=== PATIENT | female | born 1995 | race Caucasian/White ===

== ENCOUNTER 2017-07-24 12:25 | Emergency (ER) | payer BC, SELFPAY ==
[2017-07-24 12:27] VITALS: BP 113/63; PULSE 88; RESP 18; TEMP 37; O2SAT 99; BMI 22.2
--- NOTE | 2017-07-24 12:32 | EKG12_ITS ---
Test Reason : NUMB/TINGLING Blood Pressure : / mmHG Vent. Rate : 080 BPM Atrial Rate : 080 BPM P-R Int : 140 ms QRS Dur : 070 ms QT Int : 350 ms P-R-T Axes : 057 037 047 degrees QTc Int : 403 ms Normal sinus rhythm Normal ECG Confirmed by MOHINDER BENITEZ, YUNIEL ([id number]), senior editor NATHAN FULLER ([id number]) on 07/26/2017 12:52:09 PM Referred By: BUNNY Confirmed By:YUNIEL VINES MD
--- NOTE | 2017-07-24 12:34 | ED.DCSUM_ITS ---
- ER Visit Summary Date of Service: 07/24/17 Chief Complaint: Tingling, almost passed out History of Present Illness: The patient is a 21 F who is at approximately 22 weeks gestation presents after near syncopal event. The patient has been in her normal state of health. She has had no problems with . She states that she was at work today. She states that she just was not feeling herself. She was at a table taking in order. She became very lightheaded and had some tunnel vision. She sat down but never lost consciousness. She had no chest pain. She states she began to panic and felt like she was short of breath but that has since resolved. She has had no vaginal bleeding or discharge. She has passed out before, but it has been a few years. There is no family history of sudden cardiac . She denies any leg swelling. She denies any other systemic symptoms. Physical Examination: Vital signs reviewed General: Well-nourished, well-developed Head: Normocephalic, atraumatic Eyes: Pupils equal and reactive, extraocular muscles intact Neck, supple, no lymphadenopathy Heart: Regular rate and rhythm Respiratory: No distress, clear bilaterally Abdomen: Soft, nontender, nondistended, no peritoneal signs Back: Nontender Extremities: Nontender, no edema, no cords Skin: Normal color no rash Neuro: Alert and oriented, no focal or lateralizing deficits Test Results: [] Emergency Department Course and Treatment: I did do a bedside ultrasound on patient arrival. She has normal activity, normal fluid, and heart rates in the 140s and reactive. EKG was obtained given her near syncopal episode. Sinus rhythm without acute ischemic change. There is normal intervals. The patient was given IV fluids. Her screening labs were obtained and unremarkable. She has had no further symptoms while here. In review with the patient, she has had some constipation during this . I do feel that this is likely contributing to her symptoms. She has a repeat normal examination. She is not hypertensive. She has no peripheral edema. At this time, I do for the patient can safely be discharged. She is comfortable this plan of care. Treatment Plan: [] Disposition: Discharge Impression: 1. Vasovagal near syncope This note was generated with The [employer] software. It may contain incorrect words, spelling, and punctuation that were not noted in review of the chart prior to signing ED Disposition - Plan for ED Patient: Chief Complaint: Numb/Ting Instructions: ED Near Syncope Vasovagal Referrals: Camelia Garcia [Primary Care Provider] -
[2017-07-24] MEDS: 0.9% Normal Saline 1,000 ML 1000 ML IV (12:46)
[2017-07-24 13:02] LABS: Absolute Lymphocyte Count 1.21 X10^3/ul (0.83-4.51); Absolute Neutrophil Count 7.6 X10^3/uL (2.0-7.7); Basophil# 0.06 X10^3/uL; Basophil% 0.6 % (0-1); Eosinophil# 0.12 X10^3/uL; Eosinophils% 1.2 % (0-5); Hematocrit 29.8 % (37-47); Hemoglobin 10.8 g/dl (12.0-15.0); Lymphocyte # 1.21 X10^3/ul (4.0); Lymphocyte % 12.4 % (19-41); Mean Corp Hgb Conc 36.2 g/gl (32-36); Mean Corpuscular Hgb 34.8 pg (27.0-32.0); Mean Corpuscular Volume 96.1 fL (81-99); Mean Platelet Vol. 8.4 fl (6.2-12.0); Monocyte# 0.64 X10^3/uL; Monocyte% 6.6 % (0-10); Neutrophil # 7.62 X10^3/uL (2.7-7.7); Neutrophil % 78.5 % (47-70); Platelet Count 294 K/mm3 (150-450); RBC Distribution Width CV 12.3 % (11.6-14.6); RBC Distribution Width SD 41.4 fl (35.1-43.9); White Blood Count 9.7 K/mm3 (4.4-11.0)
[2017-07-24 13:07] LABS: BUN 10 mg/dL (7-18); BUN/Creat Ratio 18.8 RATIO (10-20); Calcium,Total 8.6 mg/dL (8.5-10.1); Creatinine, Serum 0.53 mg/dL (0.55-1.02); EST Glomerular Filtration Rate 153 mL/min (>60); Est Glom Filt Rate - Afr Amer 186 mL/min (>60); Glucose 78 mg/dL (74-106)
[2017-07-24 13:08] LABS: Anion Gap 10 (5-15); Chloride 106 mmol/L (98-107); Potassium 3.4 mmol/L (3.5-5.1); Sodium Level 139 mmol/L (136-145)
[2017-07-24 13:34] LABS: POSITIVE COUNT NO; POSITIVE DIFFERENTIAL NO; POSITIVE MORPHOLOGY NO
[2017-07-24 13:45] VITALS: BP 115/62; PULSE 70; RESP 18
== END 2017-07-24 13:45 | disposition home or self-care (01) ==
LOC: ED 13:06
PROVIDERS: Emergency Provider Emergency Medicine; Family Provider Obstetrics & Gynecology; PCP Obstetrics & Gynecology
DX: O26.892 Other specified pregnancy related conditions, second trimester (principal); R55 Syncope and collapse; Z3A.22 22 weeks gestation of pregnancy
CPT/HCPCS: 80048; 85025; 93005; 96360; 99285; J7030

== ENCOUNTER 2017-08-23 21:40 | Outpatient (CLI) | payer BC, SELFPAY ==
[2017-08-23 22:10] VITALS: BMI 22.1
[2017-08-23 22:34] LABS: Bacteria 0 SEEN /hpf (None Seen); Mucous, Urine 0 SEEN /hpf (<or=2+); Red Blood Cells-Urine 0 SEEN /hpf (0-5)
[2017-08-23 22:49] LABS: Color, Urine Yellow (Yellow); Glucose, Dipstick Normal (Normal); Ketone-Dipstick Negative (Negative); Leukocyte Esterase-Dipstick 500 /ul (Negative); Nitrite-Dipstick Negative (Negative); Occult Blood-Urine Negative /ul (Negative); Protein-Dipstick Negative (Negative); Urine Bilirubin Dipstick Negative (Negative); Urine Clarity Sl. Cloudy (Clear); Urine Urobilinogen Normal (Normal)
[2017-08-23 22:56] LABS: ROM Internal Control Test YES-OK TO RESULT pt. (Internal QC); ROM Patient Test Negative (Negative)
[2017-08-23 23:05] LABS: Squamous Epithelial Cells - UA 0-5 SEEN /hpf (5-10); White Blood Cells 10-25 SEEN /hpf (0-5)
[2017-08-23 23:06] LABS: Amorphous Sediment 1+ PHOS
--- NOTE | 2017-08-24 04:38 | OB.TRI.NOTE ---
History of Present Illness Date of Service: 08/23/17 Was patient seen by the physician?: No Reason For Visit: LOWER ABDOMINAL PAIN Date of Service: 08/24/17 Final RIKI Source: US <20 weeks Gestational age: 26.5 History of Present Illness: 21yo @ 26.5 wks c/o lower back and abdominal pain- spotting when wiping Home Medications Medication Instructions Recorded Vit No.130/Iron/FA 1 tab PO DAILY 08/23/17 [ Tablet] Allergies No Known Allergies Allergy (Verified 08/23/17 22:09) NST - FHR Rate Baby A Baseline: 145 Variability:: Moderate Accelerations:: 10 x 10 Decelerations:: None NST Reactive:: Yes, Appropriate for gestational age FHR Category:: Category I Uterine Activity:: no ctx Impression/Plan 21yo @ 26.5 wks, lower back and abdominal pain- not in labor 1) dc home
== END 2017-08-23 23:59 | disposition home or self-care (01) ==
LOC: WPOUT 21:45 → WP 21:46
PROVIDERS: Family Provider Obstetrics & Gynecology; PCP Obstetrics & Gynecology; Visit Provider Obstetrics & Gynecology
DX: O26.892 Other specified pregnancy related conditions, second trimester (principal); M54.5 Low back pain; R10.9 Unspecified abdominal pain; Z3A.26 26 weeks gestation of pregnancy
CPT/HCPCS: 59025; 59050; 81001; 84112; 99218; G0378

== ENCOUNTER 2017-11-17 11:01 | Inpatient (IN) | payer BC, SELFPAY ==
--- NOTE | 2017-11-17 11:01 | DT_ITS ---
This patient was seen during an EMR downtime November 14, 2017 - November 21, 2017. This patient may have a combination of paper and electronic documentation or all paper documentation. All documentation is viewable within the e-chart portion of [facility] for each patient visit.
[2017-11-20 13:22] LABS: Red Blood Count 3.71 M/mm3 (4.2-5.4); White Blood Count 9.7 K/mm3 (4.4-11.0)
[2017-11-20 13:23] LABS: Hematocrit 35.8 % (37-47); Hemoglobin 12.6 g/dl (12.0-15.0); Mean Corp Hgb Conc 35.2 g/gl (32-36); Mean Corpuscular Volume 96.5 fL (81-99); Platelet Count 226 K/mm3 (150-450); RBC Distribution Width CV 12.4 % (11.6-14.6); RBC Distribution Width SD 43.4 fl (35.1-43.9); Scan Indicated on CBC? Y/N NO
[2017-11-20 13:58] LABS: ROM Internal Control Test YES-OK TO RESULT pt. (Internal QC); ROM Patient Test POSITIVE (Negative)
== END 2017-11-19 15:30 | disposition home or self-care (01) | DRG 775 ==
LOC: WPOUT 11:17 → WP 11:43
PROVIDERS: Admitting Provider Obstetrics & Gynecology; Visit Provider Obstetrics & Gynecology
DX: O24.429 Gestational diabetes mellitus in childbirth, unspecified control (principal); O71.4 Obstetric high vaginal laceration alone; Z3A.39 39 weeks gestation of pregnancy; Z37.0 Single live birth
CPT/HCPCS: 59025; 59050; 84112; 85027; 86850; 86900; 99218; J7120; A4216; G0378; J2405

== ENCOUNTER 2019-05-04 01:39 | Emergency (ER) | payer BC, SELFPAY ==
[2019-05-04 01:41] VITALS: BP 111/54; PULSE 120; RESP 16; TEMP 36.7; O2SAT 96; BMI 19.3
--- NOTE | 2019-05-04 01:56 | ED.VIS.GEN ---
History of Present Illness Chief Complaint: Nausea/Vomiting Informant: Patient Narrative: Presents with nausea and vomiting. She is 13 weeks . She is also had 2 episodes of diarrhea. This started this evening around 9 PM. She has had approximately 10 episodes of nonbloody emesis. She has some mild abdominal cramping. No sick contacts. Been no bad food exposures. She has not had much nausea with her . She is never had hyperemesis. This is her second . Is been uncomplicated. Current severity mild. No home treatment. Past Medical History - Allergies and Home Meds Allergies/Adverse Reactions: Allergies No Known Allergies Allergy (Verified 05/04/19 01:40) Primary Care Physician: Camelia Garcia [STAFF PHYSICIAN] - Prior records reviewed: Yes Past Medical History: None Surgical History: noncontributory Lives: With Family Smoking Status: Never smoker Alcohol: None Drugs: None Review of Systems General: Denies: Chills, Fever, Sweats Eyes: Denies: Visual changes - bilaterally, Diplopia ENT: Denies: Rhinorrhea, Sore throat Cardiovascular: Denies: Chest pain, Palpitations Respiratory: Denies: Dyspnea, Cough, Dyspnea on exertion Gastrointestinal: Reports: Abdominal pain - Cramping, Nausea, Vomiting, Diarrhea. Denies: Melena, Hematochezia Genitourinary: Denies: Dysuria, Hematuria, Frequency Musculoskeletal: Denies: Back pain, Extremity Pain Skin: Denies: Rash, Wounds Neurological: Denies: Headache, Weakness, Numbness Physical Exam Vital Signs/Narrative: Vital Signs Temp Pulse Resp BP Pulse Ox 05/04/19 01:41 98.0 F 120 H 16 111/54 L 96 General: Well nourished, Well developed, No Acute Distress Head: Normocephalic, Atraumatic Eyes: Perrl, EOMI ENT: Moist mucous membranes, No rhinorrhea Neck: Supple, Nontender Cardiovascular: Regular rate, Regular rhythm, No murmurs Respiratory: No distress, CTA bilaterally, Chest nontender Abdomen: Soft, Nontender, Nondistended, Normal bowel sounds Back: Nontender, Normal Inspection Extremities: Nontender, No edema Skin: Normal color, No rash Neurological: Alert, Oriented x3, Cranial nerves II-XII grossly intact, Normal Strength, Normal Sensation Psychological: Normal affect, Normal Mood Diagnostic/Tx/Re-eval - Medical Decision Making Given IV fluids and Zofran. Patient felt significantly better after treatment. Her nausea is resolved. She tolerated orals. She will be discharged with Zofran to continue. Her significant other vomited in the emergency department while he was at her side. I think they likely have gastroenteritis. She will use Imodium for diarrhea and follow-up as an outpatient ED Disposition - Plan for ED Patient: Disposition: Home or Assisted Living Diagnosis: Vomiting and diarrhea Instructions: DIET, Vomiting or Diarrhea [6yr-Adult] Prescriptions: Ondansetron [Zofran Odt] 4 mg PO Q8H PRN PRN #10 tab PRN Reason: Nausea Prescription Printed Referrals: Camelia Garcia [STAFF PHYSICIAN] -
[2019-05-04] MEDS: Ondansetron 4 MG/2 ML Vial IV (02:06)
[2019-05-04] MEDS: 0.9% Normal Saline 1,000 ML 1000 ML IV (02:06)
[2019-05-04 02:21] VITALS: BP 98/52
[2019-05-04 03:21] VITALS: BP 98/58; PULSE 90; RESP 18; O2SAT 99
== END 2019-05-04 03:22 | disposition home or self-care (01) ==
PROVIDERS: Emergency Provider Emergency Medicine
DX: O21.8 Other vomiting complicating pregnancy (principal); Z3A.13 13 weeks gestation of pregnancy; R19.7 Diarrhea, unspecified
CPT/HCPCS: 96361; 96374; 99283; J2405

== ENCOUNTER 2019-11-09 04:50 | Inpatient (IN) | payer BC, SELFPAY ==
[2019-11-09] VITALS (44 sets, daily range): BP systolic 100–149; BP diastolic 35–74; PULSE 47–111; RESP 14–16; TEMP 36.6–36.9; O2SAT 78–100; BMI 24.0
[2019-11-09] MEDS: Lactated Ringers 500 ML 999 ML IV ×2 (05:05→06:51)
[2019-11-09 05:27] LABS: Absolute Lymphocyte Count 1.93 X10^3/uL (0.83-4.51); Absolute Neutrophil Count 9.5 X10^3/uL (2.0-7.7); Basophil# 0.07 X10^3/uL; Basophil% 0.6 % (0-1); Eosinophil# 0.05 X10^3/uL; Eosinophils% 0.4 % (0-5); Hematocrit 38.1 % (37-47); Hemoglobin 12.7 g/dL (12.0-15.0); Lymphocyte # 1.93 X10^3/ul (4.0); Lymphocyte % 15.5 % (19-41); Mean Corp Hgb Conc 33.3 g/dL (32-36); Mean Corpuscular Hgb 32.4 pg (27.0-32.0); Mean Corpuscular Volume 97.2 fL (81-99); Mean Platelet Vol. 9.3 fl (6.2-12.0); Monocyte# 0.83 X10^3/uL; Monocyte% 6.7 % (0-10); NRBC Flagged by Analyzer 0 % (0-5); Neutrophil # 9.52 X10^3/uL (2.7-7.7); Neutrophil % 76.3 % (47-70); Platelet Count 315 K/mm3 (150-450); RBC Distribution Width CV 12.2 % (11.6-14.6); RBC Distribution Width SD 43.4 fl (35.1-43.9); Red Blood Count 3.92 M/mm3 (4.2-5.4); White Blood Count 12.5 K/mm3 (4.4-11.0)
--- NOTE | 2019-11-09 05:47 | PCM.HP.OB ---
- Problem List (1) 39 weeks gestation of Status: Acute (2) Active labor at term Status: Acute (3) Primiparous Status: Acute History Date of Admission: 11/09/19 Final RIKI: 11/10/19 Final RIKI Source: US <20 weeks Gestational age: 39 Weeks and 6 Days History of this : This is a 23 year-old, G 1, P 0, at 39 weeks gestational age who presents with ctx's. No vb, lof. Good FM. Medical History: Medical History (This Medical Record has been edited. Action required.) Anemia D64.9 Asthma J45.909 Depression F32.9 Seizure R56.9 Allergies No Known Allergies Allergy (Verified 11/09/19 05:05) Home Medications: Home Medications Vit No.130/Iron/Folic [ Tablet] 1 tab PO DAILY 08/23/17 Smoking Status: Never smoker NST - FHR Rate Baby A FHR Category:: Category I History Past Pregnancies: Past Pregnancies Delivery Date Name GA/ Weeks Outcome Route Wt Infant Sex Labor Length Anesthesia Delivery Location Provider FOB Expected Delivery Method: Spontaneous Vaginal Physical Exam Vitals: Vital Signs Pulse BP Pulse Ox 68 110/59 L 98 11/09/19 05:43 11/09/19 05:43 11/09/19 05:41 General: Alert, No apparent distress HEENT: Atraumatic Abdomen: Soft, Non Tender, Gravid Extremities:: No edema Neurological: Neuro grossly intact 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 Action required.) 39 weeks gestation of (Acute) Active labor at term (Acute) Primiparous (Acute) This is a 23 year-old, G 1, P 0, at 39 weeks gestational age who presented with ctx's and was 6.5 cm dilated on admission. - Routine intrapartum care - Epidural prn - PCN for GBS positive - EFW estimated to be < 4500 g and pelvis adequate - Anticipate vaginal delivery
[2019-11-09] MEDS: fentaNYL-bupivacaine (epidural) 100 ML BAG EPIDURAL (05:51)
[2019-11-09] MEDS: Lactated Ringers 1,000 ML 200 ML IV (06:32)
[2019-11-09] MEDS: Oxytocin 30 units/NS 500 ml 30 UNITS/500 ML IV.SOLN 334 UNITS IV (07:32)
--- NOTE | 2019-11-09 07:57 | PCM.OPRPT ---
Problem List (1) 39 weeks gestation of Status: Acute (2) Active labor at term Status: Acute Report of Operation Date of Procedure: 11/09/19 Pre-Operative Diagnosis: 39 weeks, active labor Post-Operative Diagnosis: As above Surgery/Procedure Performed:: Description of Surgical Findings:: Appearing and intact placenta with a three-vessel cord. Clear fluid. Type of Anesthesia:: Epidural Special Medications: None Specimen's removed: Placenta Drains: None Estimated Blood Loss (mL): 200 Description of Procedure: Patient complete and pushing. Head, anterior shoulder, posterior shoulder, followed by body of viable female were delivered without any force or delay. Infant was delivered atraumatically and placed on maternal abdomen. The cord was clamped and cut after a 60 sec delay. The placenta was removed spontaneously. The placenta was noted to be normal-appearing and intact with a three-vessel cord. The uterus was explored x1. Fundus was firm and bleeding hemostatic. No lacerations noted. Vaginal sweep was performed. Instrument counts were correct. Grafts/Implants Used: None - Complications None Vaginal Delivery Maternal Presentation: Active Labor Amniotic Membrane Rupture Type: Artificial Amniotic Fluid Description: Clear Final RIKI: 11/10/19 Gestational age: 39 Weeks and 6 Days Surgery/ Procedure Performed: Spontaneous Vaginal Delivery Type of Anesthesia: Epidural Presentation: Vertex Placental Delivery Description: Spontaneous Cord Vessel Description: 3 Vessels Cord Entanglement: None Infant A gender: Female (1 minute): 8 (5 minute): 9 Episiotomy Description: None Laceration: None Medications given after delivery: IV Pitocin
[2019-11-09] MEDS: Methylergonovine 0.2 MG/ML Ampul IM (08:45)
[2019-11-09] MEDS: Ondansetron 4 MG/2 ML Vial IV (09:18)
[2019-11-09] MEDS: Prenatal Vits Tablet 1 TABLET PO (11:39)
[2019-11-10] MEDS: Ibuprofen 600 MG Tablet PO (01:07)
[2019-11-10 01:11] VITALS: BP 105/55; PULSE 63; RESP 16; TEMP 37.2
[2019-11-10 04:00] VITALS: BP 99/52; PULSE 61; RESP 16; TEMP 36.9
[2019-11-10 08:30] VITALS: BP 95/44; PULSE 70; RESP 16; TEMP 36.6
--- NOTE | 2019-11-10 10:48 | PCM.PN.OB ---
Patient Problems: Active and Suspected Problems (This Medical Record has been edited. Action required.) 39 weeks gestation of (Acute) (spontaneous vaginal delivery) (Acute) Subjective: Patient seen at bedside. Feeling well. Denies any pain at this time. Voiding without difficulty and lochia is mild. . Requesting to be discharged home today. - Physical Exam Vitals/I&O's: Vital Signs Temp Pulse Resp BP Pulse Ox 97.8 F 70 16 95/44 L 99 11/10/19 08:30 11/10/19 08:30 11/10/19 08:30 11/10/19 08:30 11/09/19 07:08 Oxygen Delivery Method Room Air Weight: 127 lb 3.307 oz Body Mass Index (BMI) 24.0 Intake and Output for Last 24 Hours 11/08/19 11/09/19 11/10/19 23:59 23:59 23:59 Intake Total 1451.41 / 1451.41 Output Total 400 / 400 Balance 1051.41 / 1051.41 General: Alert, Oriented x3 Abdomen: Bowel Sounds Present, Soft, Non Tender, Passing Flatus Extremities: No Calf Tenderness - Fundus firm 1 below U, perinium intact Current Medications Acetaminophen (Tylenol) 1,000 mg PO Q8H PRN PRN PRN Reason: Pain Score 1-3/10 Bisacodyl (Dulcolax) 10 mg RECTAL UD PRN PRN Reason: If no BM Dibucaine (Dibucaine) 1 applic TOPICAL TID PRN PRN; Protocol PRN Reason: Discomfort Hydrocortisone (Hytone) 1 applic TOPICAL TID PRN PRN; Protocol PRN Reason: Discomfort Ibuprofen (Motrin) 600 mg PO Q6H PRN PRN PRN Reason: Pain Score 1-3/10 Last Admin: 11/10/19 01:07 Dose: 600 mg Documented by: Methylergonovine Maleate (Methergine) 0.2 mg IM X1 PRN PRN Reason: Excess bleeding/uterine atony Ondansetron HCl (Zofran) 4 mg IV Q4H PRN PRN PRN Reason: Nausea Last Admin: 11/09/19 09:18 Dose: 4 mg Documented by: Multivit/Folic Acid/Iron (Prenatabs Fa) 1 tablet PO DAILY@1200 ULICES Last Admin: 11/09/19 11:39 Dose: 1 tablet Documented by: Senna/Docusate Sodium (Senokot-S, Karen-Colace) 1 - 2 tablet PO DAILY PRN PRN PRN Reason: Constipation Simethicone (Mylicon) 80 mg PO PCHS PRN PRN Reason: Indigestion/Stomach pain Sodium Chloride () 5 - 15 ml IV UD PRN PRN Reason: SALINE FLUSH Medical Necessity - Tobacco Use Smoking Status: Never smoker Assessment/Plan All Active Problems (This Medical Record has been edited. Action required.) 39 weeks gestation of (Acute) Active labor at term (Acute) (spontaneous vaginal delivery) (Acute) PPD #1 Discharge home Discharge instructions given and patient agrees with plan of care Follow up in office/virtual visit at 2 weeks or as needed
--- NOTE | 2019-11-10 11:02 | DCINST_ITS ---
Discharge Diet: No Restrictions May resume sexual activity in: 6 weeks Weight Bearing Status: Weight bearing as tolerated Call your doctor if your incision/area has: Sudden Increased Bleeding, Increased Pain/ Swelling, Increased Redness, Foul Smelling Discharge Additional Instructions: If you experience any of the following, contact your healthcare provider. * Bleeding that soaks a pad every hour for 2 hours * Fever 100.4 or higher * Unrelieved incision or abdominal pain * Swelling, redness, discharge or bleeding from your incision or episiotomy site * Your incision begins to separate * Problems urinating (including inability to urinate or burning while urinating). * Visual changes * Severe headache * Flu-like symptoms * Pain or redness in one of both of your breasts * Pain, warmth, tenderness or swelling in your legs, especially the calf area * Frequent nausea and vomiting * Symptoms of depression or anxiety If you experience any of the following, call 911 or go to the nearest Emergency Room. * Chest pain * Problems breathing * Seizure activity * Partial or complete paralysis of a body part, slurred speech, weakness or drooping of the face, or a sudden inability to walk or hold your balance Allergies/Adverse Reactions: Allergies No Known Allergies Allergy (Verified 11/09/19 05:05) Medications to take at Discharge Vits [Prenatabs FA ] 1 tab PO DAILY@1200 tab 11/10/19 Please Follow Up With: Radha Montoya DO When: 2 weeks can make virtual visit, then again at 6 weeks or as needed Primary Care Physician: Care Physician,No Primary [Primary Care Provider] - Test Results: Test results from this visit will be discussed in further detail at your follow- up appointment, if applicable.
--- NOTE | 2019-11-10 11:02 | PCM.DCVAG ---
Discharge Diet: No Restrictions May resume sexual activity in: 6 weeks Weight Bearing Status: Weight bearing as tolerated Call your doctor if your incision/area has: Sudden Increased Bleeding, Increased Pain/ Swelling, Increased Redness, Foul Smelling Discharge Additional Instructions: If you experience any of the following, contact your healthcare provider. Bleeding that soaks a pad every hour for 2 hours Fever 100.4 or higher Unrelieved incision or abdominal pain Swelling, redness, discharge or bleeding from your incision or episiotomy site Your incision begins to separate Problems urinating (including inability to urinate or burning while urinating). Visual changes Severe headache Flu-like symptoms Pain or redness in one of both of your breasts Pain, warmth, tenderness or swelling in your legs, especially the calf area Frequent nausea and vomiting Symptoms of depression or anxiety If you experience any of the following, call 911 or go to the nearest Emergency Room. Chest pain Problems breathing Seizure activity Partial or complete paralysis of a body part, slurred speech, weakness or drooping of the face, or a sudden inability to walk or hold your balance Allergies/Adverse Reactions: Allergies No Known Allergies Allergy (Verified 11/09/19 05:05) Medications to take at Discharge Vits [Prenatabs FA ] 1 tab PO DAILY@1200 tab 11/10/19 Please Follow Up With: Radha Montoya DO When: 2 weeks can make virtual visit, then again at 6 weeks or as needed Primary Care Physician: Care Physician,No Primary [Primary Care Provider] - Test Results: Test results from this visit will be discussed in further detail at your follow-up appointment, if applicable.
[2019-11-10 13:10] VITALS: BP 85/58; PULSE 91; RESP 16; TEMP 36.7
[2019-11-10] MEDS: Prenatal Vits Tablet 1 TABLET PO (13:13)
[2019-11-10 18:30] VITALS: BP 102/63; PULSE 71; RESP 16; TEMP 36.6
== END 2019-11-10 18:40 | disposition home or self-care (01) | DRG 807 ==
LOC: WPOUT 04:52 → WP 04:52
PROVIDERS: Admitting Provider Obstetrics & Gynecology; Visit Provider Obstetrics & Gynecology
DX: O98.82 Other maternal infectious and parasitic diseases complicating childbirth (principal); Z37.0 Single live birth; Z3A.39 39 weeks gestation of pregnancy; B95.1 Streptococcus, group B, as the cause of diseases classified elsewhere
CPT/HCPCS: 59025; 59050; 85025; 86850; 86900; 86901; 99218; J7120; G0378; J2405

== ENCOUNTER 2022-05-08 12:29 | Emergency (ER) | payer OTHER, SELFPAY ==
[2022-05-08 12:30] VITALS: BP 112/71; PULSE 105; RESP 16; TEMP 37.3; O2SAT 99; BMI 19.6
--- NOTE | 2022-05-08 13:06 | EX.ED.DYSGE1 ---
HPI History of Present Illness Chief Complaint: Nausea/Vomiting Informant: patient Narrative Narrative: 26-year-old female G3, P2 at approximately 7 weeks presenting to the emergency department with vomiting and diarrhea. Patient states that symptoms began around 2200 hrs. last night. She notes now she is only able to throw up bile. She denies any fevers. She denies any myalgias sore throat runny nose or cough. has otherwise been uneventful. She follows with [facility] Medical History Anemia Depression Seizure Home Medications vits,calcium no.78-iron fumarate-folic acid 29 mg-1 mg tablet 1 tab PO DAILY@1200 11/10/19 [Rx Last Taken Unknown] Allergy/AdvReac Type Severity Reaction Status Date / Time No Known Allergies Allergy Verified 05/08/22 12:29 Social History (Updated 05/08/22 @ 13:[address] Phil Tanner DO) current gender identity: female Smoking Status: Former smoker ROS ROS ED Constitutional Constitutional ED: Denies chills or weight loss Eyes Eyes: Denies change in vision or diplopia ENT ENT ED: Denies ear pain, rhinorrhea or sore throat Cardiovascular Cardiovascular: Denies chest pain, orthopnea, palpitations or racing heartbeat Respiratory/Chest Respiratory/Chest: Denies cough, dyspnea or orthopnea Gastrointestinal Gastrointestinal: Reports diarrhea, nausea and vomiting; Denies abdominal pain Genitourinary Genitourinary ED: Denies dysuria, hematuria or urinary frequency Musculoskeletal Musculoskeletal: Denies arthralgias or myalgias Integumentary Denies abscess or rash Neurologic Neurologic: Denies headache(s) or weakness Psychiatric Psychiatric: Denies anxiety, depression, suicidal ideation or suicidal thoughts Endocrine Endocrinology: Denies polydipsia, polyphagia or polyuria Allergic/Immunologic Allergic/Immunologic ED: Denies mouth swelling, tongue swelling or urticaria EXAM Physical Exam Const Vital Signs: 05/08/22 12:30 Temperature 99.2 F H Temperature Source Temporal Pulse Rate 105 H Respiratory Rate 16 Blood Pressure 112/71 Blood Pressure Mean 84 Pulse Ox 99 Oxygen Delivery Method Room Air Positive well nourished and well developed General Appearance ED: well developed HEENT Reports normocephalic, head/scalp atraumatic and moist mucous membranes Eyes PERRL and EOMs intact bilaterally Neck no lymphadenopathy, supple and no JVD Resp normal respiratory effort and clear to auscultation bilaterally Cardio regular rate, regular rhythm and no murmurs GI normal to inspection, nondistended, normoactive bowel sounds and non-tender Palpation: soft Back/Spine no CVA tenderness and normal ROM Extremity normal to inspection General Extremety ED: Negative for edema General Extremity: Negative for edema Neuro oriented x3 and CN's II-XII intact bilaterally Sensorium / Orientation: alert Motor Exam: strength 5/5 throughout Psych mental status grossly normal Mood & Affect: Negative for depressed or tearful Skin no rashes or lesions noted and no wounds MDM MDM MDM Narrative Medical decision making narrative: The patient received IV fluids and Zofran. She is tolerating p.o. fluids. Think this is most likely a case of viral gastroenteritis. I can write for some Zofran at home. Tylenol for pain/fever. Discharge Plan Triage Chief Complaint: Nausea/Vomiting ED Provider: Phil Tanner Dx/Rx/DC Orders Prescriptions: No Action vit,[id number] 1 TABLET tablet 1 tab PO DAILY@1200 0RF Primary Care Provider: Mitchell Dolan Referrals: Mitchell Dolan MD [Primary Care Provider] -
[2022-05-08] MEDS: Ondansetron 4 MG/2 ML Vial IV (13:26)
[2022-05-08] MEDS: 0.9% Normal Saline 1,000 ML 1000 ML IV (13:26)
[2022-05-08 14:26] VITALS: BP 106/78; PULSE 90; RESP 15; O2SAT 98
== END 2022-05-08 14:27 | disposition home or self-care (01) ==
PROVIDERS: Emergency Provider Emergency Medicine; PCP Family Medicine; Visit Provider Emergency Medicine
DX: O99.891 Other specified diseases and conditions complicating pregnancy (principal); R11.2 Nausea with vomiting, unspecified; Z3A.01 Less than 8 weeks gestation of pregnancy; R50.9 Fever, unspecified; R19.7 Diarrhea, unspecified; Z87.891 Personal history of nicotine dependence
CPT/HCPCS: 96361; 96374; 99282; J7030; A4216; J2405

== ENCOUNTER 2022-06-25 13:22 | Emergency (ER) | payer OTHER, SELFPAY ==
[2022-06-25 13:22] VITALS: BP 122/60; PULSE 92; RESP 18; TEMP 35.9; O2SAT 99; BMI 20.2
--- NOTE | 2022-06-25 15:11 | EKG12_ITS ---
Test Reason : SOB Blood Pressure : / mmHG Vent. Rate : 072 BPM Atrial Rate : 072 BPM P-R Int : 142 ms QRS Dur : 072 ms QT Int : 382 ms P-R-T Axes : 063 018 037 degrees QTc Int : 418 ms Normal sinus rhythm Normal ECG Confirmed by MOHINDER BENITEZ, YUNIEL ([id number]), make up editor ALY TURNER ([id number]) on 06/28/2022 11:48:31 AM Referred By: Confirmed By:YUNIEL VINES MD
--- NOTE | 2022-06-25 15:14 | EDS_ITS ---
HPI History of Present Illness Chief Complaint: Shortness of Breath Informant: patient Narrative Narrative: Patient appears tense with several symptoms. She is currently 15 weeks . For a week or so she has had a headache. Nothing really makes this better or worse. Its not thunderclap. Its not sudden onset. Is not the worst she is ever had. He has not been associated with any neurologic symptoms. She has tried Tylenol for it which did not do all that much. She also states that she feels sort of lightheaded a little bit dizzy and a little bit short of breath when she is up moving around and walking. She has not actually passed out or had near syncope but more feels lightheaded. No chest pain or palpitations. She has had this before in the past. She actually had this and sounds like she may have had syncopal events with her prior pregna ncy but has not had them with this . She has no first-degree relative history of DVT PE or heart disease. She has no travel surgery or immobilization. She is 15 weeks . No leg pain or swelling. She is not having any symptoms while sitting down in the bed now. Patient did have some hyperemesis earlier in but is generally been eating and drinking well for the last 1 or 2 months. She denies fevers or chills. No diffuse myalgias. No vomiting. No diarrhea. She has had some frequent urination consistent with but no dysuria. Of note her urine is a bit darker indicating possible mild dehydration. Patient has had symptoms like this before when her hemoglobin and her iron are low. But she is now taking iron on her own along with a vitamin. She does not have chronic heart disease, rhythm disturbance, asthma. [facility] Medical History Anemia Depression Seizure Home Medications vits,calcium no.78-iron fumarate-folic acid 29 mg-1 mg tablet 1 tab PO DAILY@1200 11/10/19 [Rx Last Taken Unknown] ondansetron HCl 4 mg tablet 4 mg PO Q6H PRN nausea and vomiting #20 tabs 05/08/22 [Rx Last Taken Unknown] Allergy/AdvReac Type Severity Reaction Status Date / Time No Known Allergies Allergy Verified 06/25/22 13:25 Social History Smoking Status: Former smoker ROS ROS ED Constitutional Constitutional ED: Denies chills or fever(s) Eyes Eyes: Denies change in vision ENT ENT ED: Denies rhinorrhea or sore throat Cardiovascular Cardiovascular: Denies chest pain, palpitations or racing heartbeat Respiratory/Chest Respiratory/Chest: Reports dyspnea on exertion; Denies cough Gastrointestinal Gastrointestinal: Denies abdominal pain, nausea or vomiting Genitourinary Genitourinary ED: Reports urinary frequency; Denies dysuria Musculoskeletal Musculoskeletal: Denies myalgias Integumentary Denies rash Neurologic Neurologic: Reports headache(s); Denies paresthesias or weakness Endocrine Endocrinology: Denies polydipsia or polyuria Hematologic/Lymphatic Hematologic/Lymphatic: Reports anemia Allergic/Immunologic Allergic/Immunologic ED: Denies urticaria EXAM Physical Exam Const Vital Signs: 06/25/22 13:22 06/25/22 15:03 06/25/22 15:33 Temperature 96.7 F L Temperature Source Temporal Pulse Rate 92 78 Respiratory Rate 18 16 Respiratory Effort Normal Non-Labored Respiratory Depth Normal Respiratory Pattern Normal Blood Pressure 122/60 H 104/78 Blood Pressure Mean 80 86 Pulse Ox 99 98 Oxygen Delivery Method Room Air Room Air Positive well nourished and well developed Constitutional Narrative: Patient does not look notably pale. General Appearance ED: well developed and NAD; Negative for cyanotic, diaphoretic or pallor HEENT HEENT Narrative: Minimally dry mucous membranes Eyes PERRL and EOMs intact bilaterally Eyes Narrative: No photophobia. Normal pupillary response. Normal range of motion. Neck supple and no JVD Neck Narrative: She has some muscular soreness in bilateral paraspinals of the neck. But no meningismus. No stridor. No JVD. Chest Wall inspection of chest normal Resp normal respiratory effort and clear to auscultation bilaterally Resp Narrative: No pain with deep breath. Lungs are completely clear. Effort and Inspection: Negative for retractions or pain with movement Auscultation: Negative for rales, rhonchi or wheezes Cardio regular rate, regular rhythm and no murmurs Rate: Negative for tachycardic GI normal to inspection, nondistended, normoactive bowel sounds and non-tender Palpation: soft; Negative for tender or guarding Back/Spine no CVA tenderness Extremity normal to inspection Extremity Narrative: No edema, cords, asymmetry, distended veins or tenderness along the deep venous system. Neuro Sensorium / Orientation: alert Psych mental status grossly normal Skin General Skin Exam: Negative for jaundice or pallor MDM MDM MDM Narrative Medical decision making narrative: Patient was walked around the hallway in the back. Her heart rate went from 70s up to the low 90s. Her oxygen saturation went from 100 down to about 99 at the lowest. She felt well. On further history, we find out that the patient only drinks maybe 1 glass of water in a day. This might be contributing some mild dehydration as her need for fluids and her blood volume increases. Her urine did look clinically quite dark although not cloudy. This could be some dehydration. For this reason she was given IV fluids. We are waiting work-up of blood work. I did have the patient bring up her [email or web address] system and I reviewed blood work from back in May. At that time she had a hemoglobin that was about 1 g lower than her current level. I find out from both the patient and her mother that she is not drinking much fluids. Normally 1 would get more anemic with but she is getting higher hemoglobins. I think this is likely some mild dehydration. Her specific gravity is only slightly up at 1.020. Renal function is preserved. Patient feels better with IV fluids. I do not think this patient's symptoms justify cath scanning of head or chest. She has no tachycardia hypoxia tachypnea or pleuritic chest pain. She has no neurologic deficit. She has a headache that is improved with fluids. Patient will follow up with her OB group at [facility]. Lab Data Attestation: I reviewed the patient's lab results. Labs: Laboratory Results - last 24 hr 06/25/22 06/25/22 06/25/22 15:15 15:30 15:30 WBC 9.9 RBC 3.87 L Hgb 12.6 Hct 36.3 L MCV 93.8 MCH 32.6 H MCHC 34.7 RDW Std Deviation 42.7 RDW Coeff of Camilo 12.5 Plt Count 316 MPV 8.3 Immature Gran % (Auto) 0.600 Neut % (Auto) 75.9 H Lymph % (Auto) 16.5 L Luna % (Auto) 5.4 Eos % (Auto) 1.1 Baso % (Auto) 0.5 Absolute Neuts (auto) 7.5 Absolute Lymphs (auto) 1.64 Nucleated RBC % 0 Sodium 136 Potassium 3.8 Chloride 106 Carbon Dioxide 24.0 Anion Gap 6 BUN 9 Creatinine 0.53 L Estim Creat Clear Calc 121.38 Est GFR (MDRD) Af Amer 179 Est GFR (MDRD) Non-Af 148 BUN/Creatinine Ratio 17.0 Glucose 70 L Calcium 9.4 Urine Color Yellow Urine Clarity Clear Urine pH 6.5 Ur Specific [place] 1.020 Urine Protein Negative Urine Glucose (UA) Normal Urine Ketones Negative Urine Occult Blood 25 H Urine Nitrite Negative Urine Bilirubin Negative Urine Urobilinogen 1 H Ur Leukocyte Esterase 25 H Urine RBC 0-5 SEEN Urine WBC 0-5 SEEN Ur Squamous Epith Cells 0 SEEN Urine Bacteria RARE Urine Mucus 0 SEEN EKG Initial EKG: Comments: EKG done for nonspecific lightheadedness feeling read by me. My independent interpretation of the EKG shows that it is normal sinus rhythm. Overall rate is 72. No ectopy but there is some mild sinus arrhythmia. [place] interval, QRS duration, QTc are all normal. Discharge Plan Triage Chief Complaint: Shortness of Breath ED Provider: Harsh Jones Dx/Rx/DC Orders Clinical Impression: Mild dehydration, Intermittent lightheadedness Instructions: ED Dehydration (Adult), ED Dizziness, Uncertain Cause Prescriptions: No Action vit,[id number] 1 TABLET tablet 1 tab PO DAILY@1200 0RF ondansetron HCl 4 mg tablet 4 mg PO Q6H PRN (Reason: nausea and vomiting) Qty: 20 0RF Primary Care Provider: Mitchell Dolan Referrals: Camelia Garcia MD [Med Staff - Active Staff] - 3-5 Days Mitchell Dolan MD [Primary Care Provider] - Disposition Disposition: Home, Self Care
[2022-06-25 15:19] VITALS: O2SAT 100
[2022-06-25] MEDS: 0.9% Normal Saline 1,000 ML 1000 ML IV (15:30)
[2022-06-25 15:33] VITALS: BP 104/78; PULSE 78; RESP 16; O2SAT 98
[2022-06-25 15:35] LABS: Mucous, Urine 0 SEEN /hpf (<or=2+); Squamous Epithelial Cells - UA 0 SEEN /hpf (5-10)
[2022-06-25 15:37] LABS: Absolute Lymphocyte Count 1.64 X10^3/uL (0.83-4.51); Absolute Neutrophil Count 7.5 X10^3/uL (2.0-7.7); Basophil# 0.05 X10^3/uL; Basophil% 0.5 % (0-1); Eosinophil# 0.11 X10^3/uL; Eosinophils% 1.1 % (0-5); Hematocrit 36.3 % (37-47); Hemoglobin 12.6 g/dL (12.0-15.0); Lymphocyte # 1.64 X10^3/ul (0.83-4.51); Lymphocyte % 16.5 % (19-41); Mean Corp Hgb Conc 34.7 g/dL (32-36); Mean Corpuscular Hgb 32.6 pg (27.0-32.0); Mean Corpuscular Volume 93.8 fL (81-99); Mean Platelet Vol. 8.3 fl (6.2-12.0); Monocyte# 0.54 X10^3/uL; Monocyte% 5.4 % (0-10); NRBC Flagged by Analyzer 0 % (0-5); Neutrophil # 7.54 X10^3/uL (2.7-7.7); Neutrophil % 75.9 % (47-70); Platelet Count 316 K/mm3 (150-450); RBC Distribution Width CV 12.5 % (11.6-14.6); RBC Distribution Width SD 42.7 fl (35.1-43.9); Red Blood Count 3.87 M/mm3 (4.2-5.4); White Blood Count 9.9 K/mm3 (4.4-11.0)
[2022-06-25 15:53] LABS: Color, Urine Yellow (Yellow); Glucose, Dipstick Normal (Normal); Ketone-Dipstick Negative (Negative); Leukocyte Esterase-Dipstick 25 /ul (Negative); Nitrite-Dipstick Negative (Negative); Occult Blood-Urine 25 /ul (Negative); Protein-Dipstick Negative (Negative); Urine Bilirubin Dipstick Negative (Negative); Urine Clarity Clear (Clear); Urine Urobilinogen 1 mg/dl (Normal); Urine pH 6.5 (5.0 - 8.0)
[2022-06-25 15:59] LABS: Anion Gap 6 (5-15); BUN 9 mg/dL (7-18); Calcium,Total 9.4 mg/dL (8.5-10.1); Chloride 106 mmol/L (98-107); Creatinine, Serum 0.53 mg/dL (0.55-1.02); EST Glomerular Filtration Rate 148 mL/min (>60); Est Glom Filt Rate - Afr Amer 179 mL/min (>60); Estimated Creatinine Clearance 121.38 ml/min; Glucose 70 mg/dL (74-106); Potassium 3.8 mmol/L (3.5-5.1); Sodium Level 136 mmol/L (136-145)
[2022-06-25 16:14] LABS: Bacteria RARE /hpf (None Seen); Red Blood Cells-Urine 0-5 SEEN /hpf (0-5); White Blood Cells 0-5 SEEN /hpf (0-5)
[2022-06-25 17:40] VITALS: BP 119/78; PULSE 78; RESP 16; O2SAT 99
== END 2022-06-25 17:40 | disposition home or self-care (01) ==
PROVIDERS: Emergency Provider Emergency Medicine; PCP Family Medicine; Visit Provider Emergency Medicine
DX: O99.282 Endocrine, nutritional and metabolic diseases complicating pregnancy, second trimester (principal); Z3A.15 15 weeks gestation of pregnancy; R06.02 Shortness of breath; R42 Dizziness and giddiness; Z87.891 Personal history of nicotine dependence; E86.0 Dehydration; R35.0 Frequency of micturition
CPT/HCPCS: 80048; 81001; 85025; 93005; 96360; 96361; 99284; J7030; A4216

== ENCOUNTER 2022-12-19 01:47 | Inpatient (IN) | payer OTHER, SELFPAY ==
[2022-12-19] VITALS (57 sets, daily range): BP systolic 90–124; BP diastolic 38–71; PULSE 57–93; RESP 16; TEMP 36.1–37.4; O2SAT 97–100; BMI 26.0
[2022-12-19] MEDS: Lactated Ringers 1,000 ML 50 ML IV (02:00)
[2022-12-19] MEDS: LACTATED RINGERS 500 ML 999 ML IV ×2 (02:00→03:58)
[2022-12-19 02:15] LABS: Absolute Lymphocyte Count 1.75 X10^3/uL (0.83-4.51); Absolute Neutrophil Count 10.3 X10^3/uL (2.0-7.7); Basophil# 0.04 X10^3/uL; Basophil% 0.3 % (0-1); Eosinophil# 0.07 X10^3/uL; Eosinophils% 0.5 % (0-5); Lymphocyte # 1.75 X10^3/ul (0.83-4.51); Lymphocyte % 13.3 % (19-41); Mean Corp Hgb Conc 34.4 g/dL (32-36); Mean Corpuscular Hgb 32.3 pg (27.0-32.0); Mean Corpuscular Volume 93.8 fL (81-99); Mean Platelet Vol. 9.1 fl (6.2-12.0); Monocyte# 0.88 X10^3/uL; Monocyte% 6.7 % (0-10); NRBC Flagged by Analyzer 0 % (0-5); Neutrophil # 10.28 X10^3/uL (2.7-7.7); Neutrophil % 78.4 % (47-70); Platelet Count 212 K/mm3 (150-450); RBC Distribution Width CV 15.9 % (11.6-14.6); RBC Distribution Width SD 54.3 fl (35.1-43.9); Red Blood Count 3.41 M/mm3 (4.2-5.4); White Blood Count 13.1 K/mm3 (4.4-11.0)
[2022-12-19] MEDS: fentaNYL-bupivacaine (epidural) 100 ML BAG EPIDURAL (03:41)
[2022-12-19 04:04] LABS: Syphilis Antibodies Non-reactive
[2022-12-19] MEDS: Oxytocin 15 Units/NS 250ml 15 UNITS/250 ML IV.SOLN 83 UNITS IV (06:30)
[2022-12-19] MEDS: Oxytocin 10 UNITS/ML Vial IM (06:30)
--- NOTE | 2022-12-19 06:37 | PCM.HP.OB ---
HPI - General General Date of Admission: 12/19/22 Date of Service: 12/19/22 HPI Narrative LILI WOODWARD, is a 27 F @ 40.2 weeks who presents c/o ctx found to be 4-5cm on admission. [facility] Medical History (Updated 12/19/22 @ 06:[address] Pippa Mccabe MD) Anemia Anxiety Depression HSV (herpes simplex virus) infection Seizure Home Medications vits,calcium no.78-iron fumarate-folic acid 29 mg-1 mg tablet 1 tab PO DAILY@1200 11/10/19 [Rx Last Taken Unknown] ondansetron HCl 4 mg tablet 4 mg PO Q6H PRN nausea and vomiting #20 tabs 05/08/22 [Rx Last Taken Unknown] acyclovir 400 mg tablet 400 mg PO TID 12/19/22 [History Last Taken 12/19/22 00:00] ferrous sulfate 325 mg (65 mg iron) tablet 325 mg PO DAILY 12/19/22 [History Last Taken 12/18/22 08:30] Allergy/AdvReac Type Severity Reaction Status Date / Time No Known Allergies Allergy Verified 12/19/22 01:29 Social History Smoking Status: Former smoker History Elective abortions Hx Para 2 Spontaneous abortions Hx # Term Pregnancies Ectopic pregnancies Hx # Pregnancies Multiple births # of living children Vital Signs Vital Signs Vital Signs: 12/19/22 01:39 12/19/22 01:39 12/19/22 01:39 Temperature Temperature Source Temporal Pulse Rate 70 Blood Pressure 124/63 H BP Systolic 124 BP Diastolic 63 Pulse Ox 12/19/22 01:39 12/19/22 01:39 12/19/22 03:07 Temperature 97.0 F L Temperature Source Temporal Pulse Rate Blood Pressure BP Systolic BP Diastolic Pulse Ox 99 12/19/22 03:07 12/19/22 03:10 12/19/22 03:10 Temperature 97.2 F L Temperature Source Pulse Rate 71 Blood Pressure 97/53 L BP Systolic 97 BP Diastolic 53 Pulse Ox 12/19/22 03:21 12/19/22 03:21 12/19/22 03:26 Temperature Temperature Source Pulse Rate 74 83 Blood Pressure BP Systolic BP Diastolic Pulse Ox 98 12/19/22 03:26 12/19/22 03:27 12/19/22 03:27 Temperature Temperature Source Pulse Rate 80 Blood Pressure 109/59 L BP Systolic 109 BP Diastolic 59 Pulse Ox 98 12/19/22 03:31 12/19/22 03:31 12/19/22 03:34 Temperature Temperature Source Pulse Rate 74 Blood Pressure 109/67 BP Systolic 109 BP Diastolic 67 Pulse Ox 100 12/19/22 03:34 12/19/22 03:43 12/19/22 03:43 Temperature Temperature Source Pulse Rate 78 83 Blood Pressure 107/71 BP Systolic 107 BP Diastolic 71 Pulse Ox 12/19/22 03:49 12/19/22 03:49 12/19/22 03:52 Temperature Temperature Source Pulse Rate 86 Blood Pressure 120/53 L 100/55 L BP Systolic 120 100 BP Diastolic 53 55 Pulse Ox 12/19/22 03:52 12/19/22 03:56 12/19/22 03:56 Temperature Temperature Source Pulse Rate 86 86 Blood Pressure 99/55 L BP Systolic 99 BP Diastolic 55 Pulse Ox 12/19/22 04:02 12/19/22 04:02 12/19/22 04:02 Temperature Temperature Source Pulse Rate 83 80 Blood Pressure 105/56 L BP Systolic 105 BP Diastolic 56 Pulse Ox 12/19/22 04:02 12/19/22 04:07 12/19/22 04:07 Temperature Temperature Source Pulse Rate 77 Blood Pressure BP Systolic BP Diastolic Pulse Ox 100 100 12/19/22 04:12 12/19/22 04:12 12/19/22 04:12 Temperature Temperature Source Pulse Rate 84 Blood Pressure 93/53 L BP Systolic 93 BP Diastolic 53 Pulse Ox 100 12/19/22 04:18 12/19/22 04:18 12/19/22 04:22 Temperature Temperature Source Temporal Pulse Rate 75 Blood Pressure BP Systolic BP Diastolic Pulse Ox 100 12/19/22 04:22 12/19/22 04:45 12/19/22 04:45 Temperature 97.9 F Temperature Source Pulse Rate 76 Blood Pressure 106/56 L BP Systolic 106 BP Diastolic 56 Pulse Ox 12/19/22 04:55 12/19/22 04:55 12/19/22 04:55 Temperature Temperature Source Pulse Rate 73 Blood Pressure 106/62 BP Systolic 106 BP Diastolic 62 Pulse Ox 98 12/19/22 04:55 12/19/22 04:55 12/19/22 04:55 Temperature 98.6 F Temperature Source Temporal Pulse Rate Blood Pressure BP Systolic BP Diastolic Pulse Ox 98 12/19/22 04:55 12/19/22 06:02 12/19/22 06:02 Temperature 98.6 F Temperature Source Pulse Rate 71 Blood Pressure 105/53 L BP Systolic 105 BP Diastolic 53 Pulse Ox 12/19/22 06:03 12/19/22 06:02 Temperature 98.4 F Temperature Source Temporal Pulse Rate Blood Pressure BP Systolic BP Diastolic Pulse Ox Weight Weight: 62.596 kg Body Mass Index (BMI) 26.0 Physical Exam Const alert and oriented x3 General Appearance: cooperative HEENT normocephalic GI GI Narrative: Gravid, non tender to palpation. OB / External & Speculum: external exam normal Extremity normal to inspection Skin no rashes or lesions noted Neuro oriented x3 and CN's II-XII intact bilaterally Psych Appearance: grossly normal Labs Labs Labs: Blood Type A POSITIVE Antibody Screen NEGATIVE Hct 32.0 % (37-47) L Hgb 11.0 g/dL (12.0-15.0) L Syphilis Total Ab Non-reactive Rhogam given: No Assessment & Plan (1) 40 weeks gestation of : PLAN: Plan Admit to L&D [facility] FHR/TOCO Epidural if requested for pain Monitor VS Anticipate pt reports no active HSV on acyclovir for prophylaxis
--- NOTE | 2022-12-19 06:42 | EX.PCM.OBRPT ---
Vaginal Delivery Operative Information Date of Procedure: 12/19/22 Pre-Operative Diagnosis: 40 weeks, active labor, HSV (no active lesions), anxiety and depression, anemia in Post-Operative Diagnosis: same, live female infant Surgery / Procedure Performed: Spontaneous Vaginal Delivery Type of Anesthesia: Epidural Drain: [place] to straight drain Estimated Blood Loss: 150 Time of Delivery: 06:25 Findings Description of Procedure: I was called that patient was 8 cm with a bulging bag upon my arrival patient was complete with bulging membranes. AROM performed clear fluid. Patient was not comfortable with epidural in place. Good maternal pushing efforts delivered the infant's head followed by the posterior arm spontaneously in the outstretched position. Gentle downward traction delivered the anterior shoulder followed by the rest the infant's body. Upon delivery the infant had good tone however was not vigorous cord clamping was performed at approximately 1 min after attempted suctioning and stimulation on mothers chest was performed- at this time was handed off to the nursery team for further evaluation and resuscitation. IV and IM Pitocin were given perineum and vaginal tissue were evaluated no lacerations. Placenta was then delivered without complication and intact. Fundus was firm. Presentation: Vertex Amniotic Membrane Rupture Type: Artificial Amniotic Fluid Description: Clear Placental Delivery Description: Spontaneous Placenta Disposition: [facility] Specimen(s) Removed: placenta Cord Vessel Description: 3 Vessels Infant A Gender: Female (1 minute): 4 (5 minute): 9 Delayed Cord Clamping: Yes Post Vaginal Delivery Medications Given After Delivery: IV Pitocin and IM Pitocin Episiotomy Description: None Laceration: None Complication Complications: None
[2022-12-19] MEDS: Ibuprofen 600 MG Tablet PO ×2 (07:34→22:37)
[2022-12-19] MEDS: Ferrous Sulfate 325 MG Tablet PO (08:06)
[2022-12-19] MEDS: Acetaminophen 500 MG Tablet 1000 MG PO (12:16)
[2022-12-19] MEDS: Acyclovir 200 MG Capsule 400 MG PO ×2 (17:34→22:37)
[2022-12-20 00:34] VITALS: BP 93/48; PULSE 81; RESP 16; TEMP 36.8
[2022-12-20 03:29] VITALS: BP 96/53; PULSE 68; RESP 14; TEMP 36.4
[2022-12-20] MEDS: Acyclovir 200 MG Capsule 400 MG PO (05:05)
[2022-12-20] MEDS: Ferrous Sulfate 325 MG Tablet PO (08:10)
[2022-12-20 08:16] VITALS: BP 102/45; BP 97/44; PULSE 75; RESP 16; TEMP 36.6; O2SAT 97
--- NOTE | 2022-12-20 09:00 | PCM.PN.OB ---
Subjective Subjective pain well controlled, average lochia, no N/V, denies HACKETT or visual changes Objective Data Objective Data Vital Signs: Vital Signs Temp Pulse Resp BP Pulse Ox O2 Del Method 97.8 F 75 16 97/44 L 97 Room Air 12/20/22 08:16 12/20/22 08:16 12/20/22 08:16 12/20/22 08:16 12/20/22 08:16 12/20/22 08:16 Oxygen Delivery Method Room Air Weight: 62.596 kg Body Mass Index (BMI) 26.0 Intake & Output: Intake and Output for Last 24 Hours 12/18/22 12/19/22 12/20/22 23:59 23:59 23:59 Intake Total 1959.00 / 1959.00 Output Total 650 / 650 Balance 1309.00 / 1309.00 Lab / Micro Data 12/19/22 02:00 Physical Exam Const alert General Appearance: cooperative GI GI Narrative: soft, moderate distention, fundus firm, appropriately tender. Abdominal bandage clean dry and intact Assessment & Plan (1) (spontaneous vaginal delivery): PLAN: Plan PPD#1, and doing well. Desires d/c. doing well
--- NOTE | 2022-12-20 09:05 | DCINST_ITS ---
Discharge Instructions Activity May resume sexual activity in: 6 weeks Follow Up Care Please Follow Up With: Genesis Del Real MD When: Follow up with our office in 1-2 and 6 weeks or as needed. [phone] Test Results: Test results from this visit will be discussed in further detail at your follow- up appointment, if applicable. Discharge Plan Admission Admit Date/Time: 12/19/22 01:47 Primary Reason for Your Visit: Vaginal delivery Attending Provider: Pippa Mccbae Primary Care Provider: Mitchell Dolan Discharge Orders/Prescriptions Prescriptions: No Action vit,[id number] 1 TABLET tablet 1 tab PO DAILY@1200 0RF ondansetron HCl 4 mg tablet 4 mg PO Q6H PRN (Reason: nausea and vomiting) Qty: 20 0RF ferrous sulfate 325 mg (65 mg iron) tablet 325 mg PO DAILY acyclovir 400 mg tablet 400 mg PO TID Referrals / Follow Up: Mitchell Dolan MD [Primary Care Provider] - Disposition Disposition (needs filled in before D/C Order can be placed): Home, Self Care
--- NOTE | 2022-12-20 12:44 | CASEMGMT ---
Social Work Assessment Labor and Delivery Unit Patient Address:[address] [place] [address] [address], [place] [address] Phone number: [phone] Date of Referral: 12/19/22 Time of Referral:? 1835 Referred By: Pippa Mccabe Date of Intervention: ??12/20/22 Time of Intervention:? 1110 Reason for Referral:? Mental Health History obtained from: medical records and mother of baby (MANISHA- Linda)???and father of baby (FOB- Lamine) Household composition: Residing at home at this time are parents, their two older children (Bismark, 5 years old, and Cece, 3 years old) and baby. MOB states that the older siblings are very excited to have a little baby sister. Patient's parent/guardian status:?MOB states that she and FOTheron have been together for 10 years, they are . 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 MOB denies history of or current abuse including domestic partner violence. ? Medical History: This is fourth and third delivery for MANISHA. MOB delivered baby girl, Paige Alarcon, via vaginal delivery. MOB states that delivery went well and she is feeling ok. Paige was born on 12/19/[birth year] weighing 3355 grams and her apgars were 4 and 9. When Paige was born she was stunned at and required some respiratory support. She was successfully weaned to room air and is healthy at this time. ? Educational Status: MOB states that both parents graduated from high school. FOB reports that he attended college and has some college education but did not graduate. Neither parent has problems with reading, writing or learning. Financial Status: Both parents are gainfully employed outside of the home. 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 FOB works at [employer]. Infant Supplies:??MOB states that they have obtained all necessary baby items including a safe sleep space, car seat, clothes, diapers and wipes. MOB states that she also has a pump. Childcare/Caregiver(s):? MANISHA reports that her mom will be able to provide childcare when both parents are at work. Transportation:?? No transportation barriers at this time, both parents have reliable transportation. Programs/Agencies Involved: ???MOB denies current linkage to any community agencies. Sw provided MOB with brochure on Help Me Grow and explained benefits of resource. MOB denied referral at this time but was appreciative of information provided. Children Services/Legal Issues:???MOB denies history of CSB involvement. No needs or concerns warranting referral at this time. Behavioral Health Issues: ??Mental Health History:??FOB denies mental health history. MOB states that she has been diagnosed with anxiety and depression. MOB states that she was initially diagnosed at age 17 and but does not feel as though this is something that she has struggled with for quite some time. MOB denies history of or current SI. bMOB reports that she is not in counseling at this time. MOB completed [place] Depression Scale. Her score was a 7. Sw provided support and education. Sw provided MOB with list of counseling and mental health supporst that are local to her. Sw encouraged MOB to get connected to mental health supports if she feels as though she is experiencing baby blues, depression/ anxiety. MOB expressed understanding. ? Substance Use History:??MOB denies substance use prior to and during . Family History:?MOB denies family history of substance use. ? Drug Screens: No drug screens observed to be in medical record. ?? Family/Social Stressors:? No family stressors identified at this time. Support Systems: MOB states that they have a lot of family who are supports for them including paternal and maternal grandparents. Depression/Shaken Baby/Safe Sleeping:?Sw provided literature and education on signs and symptoms of baby blues, depression and anxiety. Sw educated MOB and FOB to never shake a baby and the ABCs of safe sleep. Sw encouraged parents to educate their other two children on ABCs of safe sleep as well. Parents expressed understanding. ?? ASSESSMENT:? Parents were very quiet and reserved during sw assessment. MOB stated that they are anxious to be discharged. MANISHA is looking forward to going home with her other two children and getting settled into a good routine. MOB was open and receptive to sw involvement and support. PLAN:? MOB and baby medically ready for discharge today. ?No other services requested or indicated. Shanti Jones, TRACK SERVICE PERSON, CUSTOMER SUCCESS MANAGER
== END 2022-12-20 12:05 | disposition home or self-care (01) | DRG 806 ==
LOC: WPOUT 01:49 → WP 01:49
PROVIDERS: Admitting Provider Obstetrics & Gynecology; PCP Family Medicine; Referring Provider Obstetrics & Gynecology; Visit Provider Obstetrics & Gynecology
DX: O48.0 Post-term pregnancy (principal); Z37.0 Single live birth; O98.52 Other viral diseases complicating childbirth; D64.9 Anemia, unspecified; B00.9 Herpesviral infection, unspecified; O99.02 Anemia complicating childbirth; Z3A.40 40 weeks gestation of pregnancy; Z87.891 Personal history of nicotine dependence
CPT/HCPCS: 59025; 59050; 85025; 86780; 86850; 86900; 86901; 99221; J7120; G0378

== ENCOUNTER 2023-10-07 12:41 | Emergency (ER) | payer OTHER, SELFPAY ==
[2023-10-07 12:43] VITALS: BP 113/44; PULSE 98; RESP 14; TEMP 36.1; O2SAT 100; BMI 21.9
--- NOTE | 2023-10-07 13:04 | ED.VIS.FEGU ---
HPI HPI - Female History of Present Illness Chief Complaint: Vag Bleeding Informant: patient and parent Narrative Narrative: Patient is about 9 months , she started having heavy vaginal bleeding about 10 days ago, [facility] started her on progesterone, she states for the past couple days bleeding is significantly less. Now, about 1 pad every 2-3 hours, before it was 2 pads every hour. She states today she went to get her baby and had a near syncopal episode. She states that the doctors recently gave her a new prescription to increase her progesterone dose but she has not received it yet. She has also had diarrhea for the past 3 or 4 days, 10+ bouts per day, no blood. No nausea or vomiting she is trying to drink fluids well. Some lower abdominal cramping that is improving but still present. No chest pain or syncope, but she has had some mild dyspnea with light exertion. [facility] Medical History Anemia Anxiety Depression HSV (herpes simplex virus) infection Seizure Home Medications cholecalciferol (vitamin D3) 1,250 mcg (50,000 unit) capsule 1,250 mcg PO QWEEK 10/07/23 [History Last Taken Unknown] norethindrone acetate 5 mg tablet 5 mg PO DAILY 10/07/23 [History Last Taken Unknown] Allergy/AdvReac Type Severity Reaction Status Date / Time No Known Allergies Allergy Verified 12/19/22 01:29 Social History Smoking Status: Former smoker ROS ROS ED Constitutional Constitutional ED: Denies chills or fever(s) Eyes Eyes: Denies change in vision or diplopia ENT ENT ED: Denies rhinorrhea or sore throat Cardiovascular Cardiovascular: Reports lightheadedness; Denies chest pain or palpitations Respiratory/Chest Respiratory/Chest: Reports dyspnea on exertion; Denies cough or dyspnea Gastrointestinal Gastrointestinal: Reports abdominal pain and diarrhea; Denies nausea or vomiting Genitourinary Genitourinary ED: Reports as per HPI; Denies dysuria or hematuria Musculoskeletal Musculoskeletal: Denies back pain or neck pain Integumentary Denies abscess or rash Neurologic Neurologic: Denies headache(s), paresthesias or weakness Psychiatric Psychiatric: Denies suicidal ideation or suicidal thoughts EXAM Physical Exam Const Vital Signs: 10/07/23 12:43 10/07/23 13:14 10/07/23 14:00 Temperature 96.9 F L Temperature Source Temporal Pulse Rate 98 Pulse Rate [Lying] 99 Pulse Rate [Sitting (for 1 minute prior to obtaining)] 108 H Pulse Rate [Standing (for 1 minute prior to obtaining)] 102 H Respiratory Rate 14 Respiratory Effort Normal Non-Labored Respiratory Pattern Normal Blood Pressure 113/44 L Blood Pressure [Lying] 116/65 Blood Pressure [Sitting (for 1 minute prior to obtaining)] 114/78 Blood Pressure [Standing (for 1 minute prior to obtaining)] 121/72 H Blood Pressure Mean 67 Blood Pressure Mean [Lying] 82 Blood Pressure Mean [Sitting (for 1 minute prior to obtaining)] 90 Blood Pressure Mean [Standing (for 1 minute prior to obtaining)] 88 Pulse Ox 100 Oxygen Delivery Method Room Air Positive well nourished and well developed General Appearance ED: well developed and NAD HEENT Reports moist mucous membranes normocephalic and atraumatic Eyes PERRL and EOMs intact bilaterally Neck full ROM and supple Chest Wall inspection of chest normal and palpation of chest normal Resp normal respiratory effort and clear to auscultation bilaterally Cardio regular rate, regular rhythm and no murmurs GI non-tender and non-distended Auscultation: normoactive bowel sounds Palpation: soft Back/Spine no CVA tenderness General Back: other FROM Extremity normal to inspection General Extremety ED: Negative for edema, pulses abnormal or tenderness General Extremity: Negative for edema or pulses abnormal Neuro oriented x3, CN's II-XII intact bilaterally and no sensory deficits noted Sensorium / Orientation: awake and alert Motor Exam: strength 5/5 throughout Psych mental status grossly normal Skin no rashes or lesions noted and no wounds MDM MDM MDM Narrative Medical decision making narrative: Patient with diarrhea for the last few days, sounds like she has been having quite a bit of it. No blood. Also with vaginal bleeding and a near syncopal episode, differential includes acute blood loss anemia as well as dehydration. Labs indicate along with negative orthostatics, that it is more likely to be the latter, dehydration good with her bicarb low at 15 and having some mild prerenal azotemia. She was given a liter of IV fluids, she felt better. She was little nauseated so we gave her some Zofran prior to something to eat and drink since her blood sugar was 69. She was not symptomatic from this. Her hemoglobin is excellent at 12.7. In reviewing information regarding the progesterone she is taking and the vitamin D, diarrhea is not a common side effect although it has been known to occur with progesterone in some patients. I recommend continuing the progesterone, and taking an antidiarrheal as needed and staying hydrated. She is comfortable with that overall plan to follow back up with her OB. Lab Data Attestation: I reviewed the patient's lab results. Labs: Laboratory Results - last 24 hr 10/07/23 13:20 WBC 7.2 RBC 4.13 L Hgb 12.7 Hct 37.2 MCV 90.1 MCH 30.8 MCHC 34.1 RDW Std Deviation 37.7 RDW Coeff of Camilo 11.6 Plt Count 315 MPV 8.5 Immature Gran % (Auto) 0.400 Neut % (Auto) 77.9 H Lymph % (Auto) 13.8 L [place] % (Auto) 6.4 Eos % (Auto) 0.8 Baso % (Auto) 0.7 Absolute Neuts (auto) 5.6 Absolute Lymphs (auto) 0.99 Nucleated RBC % 0 Sodium 134 L Potassium 3.5 Chloride 109 H Carbon Dioxide 15.0 L Anion Gap 10 BUN 21 H Creatinine 0.71 Estim Creat Clear Calc 89.81 Est GFR (MDRD) Af Amer 126 Est GFR (MDRD) Non-Af 104 BUN/Creatinine Ratio 29.5 H Glucose 69 L Calcium 8.8 Serum , Qual NEGATIVE Discharge Plan Triage Chief Complaint: Vag Bleeding ED Provider: Jeff Bird Dx/Rx/DC Orders Clinical Impression: DUB (dysfunctional uterine bleeding), Mild dehydration, Acute diarrhea Instructions: Dehydration, ED Dysfunctional Uterine Bleeding Prescriptions: No Action norethindrone acetate 5 mg tablet 5 mg PO DAILY Patient Comments: reports was to take 3x/day, then 2x day then 1x/day cholecalciferol (vitamin D3) 1,250 mcg (50,000 unit) capsule 1,250 mcg PO QWEEK Primary Care Provider: Mitchell Dolan Referrals: Radha Montoya DO [Med Staff - Active Staff] - (Or other senior living advisor, call for follow-up directions of do not already have an appointment established) Activity Restrictions/Additional Instructions: We recommend taking an antidiarrheal and attempting to stay as hydrated as you can rather than discontinuing the norethindrone acetate medication; take this as prescribed by your FIELD PROFESSIONAL. Disposition Disposition: Home, Self Care
[2023-10-07] MEDS: 0.9% Normal Saline (1000mL) 1,000 ML 999 ML IV (13:16)
[2023-10-07 13:30] LABS: Absolute Lymphocyte Count 0.99 X10^3/uL (0.83-4.51); Absolute Neutrophil Count 5.6 X10^3/uL (2.0-7.7); Basophil# 0.05 X10^3/uL; Basophil% 0.7 % (0-1); Eosinophil# 0.06 X10^3/uL; Eosinophils% 0.8 % (0-5); Hematocrit 37.2 % (37-47); Hemoglobin 12.7 g/dL (12.0-15.0); Lymphocyte # 0.99 X10^3/ul (0.83-4.51); Lymphocyte % 13.8 % (19-41); Mean Corp Hgb Conc 34.1 g/dL (32-36); Mean Corpuscular Hgb 30.8 pg (27.0-32.0); Mean Corpuscular Volume 90.1 fL (81-99); Mean Platelet Vol. 8.5 fl (6.2-12.0); Monocyte# 0.46 X10^3/uL; Monocyte% 6.4 % (0-10); NRBC Flagged by Analyzer 0 % (0-5); Neutrophil # 5.59 X10^3/uL (2.7-7.7); Neutrophil % 77.9 % (47-70); Platelet Count 315 K/mm3 (150-450); RBC Distribution Width CV 11.6 % (11.6-14.6); RBC Distribution Width SD 37.7 fl (35.1-43.9); Red Blood Count 4.13 M/mm3 (4.2-5.4); White Blood Count 7.2 K/mm3 (4.4-11.0)
[2023-10-07 13:39] LABS: Internal QC Validated? YES +Cl - CLEAR BKGD; Pregnancy, Serum, hCG Quali. NEGATIVE Negative
[2023-10-07 13:44] LABS: Anion Gap 10 (5-15); BUN 21 mg/dL (7-18); BUN/Creat Ratio 29.5 RATIO (10-20); Calcium,Total 8.8 mg/dL (8.5-10.1); Chloride 109 mmol/L (98-107); Creatinine, Serum 0.71 mg/dL (0.55-1.02); EST Glomerular Filtration Rate 104 mL/min (>60); Est Glom Filt Rate - Afr Amer 126 mL/min (>60); Estimated Creatinine Clearance 89.81 ml/min; Glucose 69 mg/dL (74-106); Potassium 3.5 mmol/L (3.5-5.1); Sodium Level 134 mmol/L (136-145)
[2023-10-07 14:00] VITALS: BP 114/78; BP 116/65; BP 121/72; PULSE 102; PULSE 108; PULSE 99
[2023-10-07] MEDS: Ondansetron 4 MG/2 ML Vial IV (14:28)
[2023-10-07 15:02] VITALS: BP 115/61; PULSE 87; RESP 12; TEMP 36.6; O2SAT 100
== END 2023-10-07 15:03 | disposition home or self-care (01) ==
PROVIDERS: Emergency Provider Emergency Medicine; PCP Family Medicine; Visit Provider Emergency Medicine
DX: N93.8 Other specified abnormal uterine and vaginal bleeding (principal); E86.0 Dehydration; R19.7 Diarrhea, unspecified; Z87.891 Personal history of nicotine dependence; R55 Syncope and collapse; R06.00 Dyspnea, unspecified
CPT/HCPCS: 80048; 84703; 85025; 96361; 96374; 99285; J7030; A4216; J2405

== ENCOUNTER 2024-12-31 16:41 | Emergency (ER) | payer OTHER, SELFPAY ==
[2024-12-31 16:42] VITALS: BP 106/66; PULSE 88; RESP 16; TEMP 36.3; O2SAT 100; BMI 22.0
[2024-12-31] MEDS: 0.9% Normal Saline (1000mL) 1,000 ML 999 ML IV (17:24)
--- NOTE | 2024-12-31 17:26 | EDS_ITS ---
HPI History of Present Illness Chief Complaint: GI Bleed Narrative Narrative: Chief complaint and HPI: GI bleed. 29-year-old female with past medical history of depression, anxiety, anemia presents for evaluation of GI bleed. Patient states she was recently placed on Augmentin for a wisdom tooth infection. She states that the infection improved and her tooth however she developed multiple episodes of diarrhea. States that she took Augmentin for about 5 days and stopped taking it secondary to the diarrhea. She states today she noticed bright red blood on the toilet paper and in the bowl. Called her PCP who told her to come to the emergency department. Patient does endorse some mild abdominal cramping with her diarrhea. She denies any fever, chills, shortness of breath, chest pain, nausea, vomiting, dysuria. Does not believe herself to be . Review of systems: See HPI Medications: As listed on the chart Allergies: As listed on the chart PFSH: Per chart Vital signs: As listed on the chart. Reviewed. Physical exam: Gen: A&O x3, NAD Head: Normocephalic, atraumatic Eyes: No sclera icterus, conjunctiva clear ENT: Moist mucous membranes Neck: Trachea midline, No JVD CV: RRR, no murmurs, no peripheral edema Resp: Lungs CTA BL, no w/r/c GI: Abd soft, non-distended, non-tender, no r/r/g Rectal: Normal external examination. Small non-thrombosed external hemorrhoid with mild bright red blood bleeding, normal tone and sensation, No masses, fluctuance, or tenderness. No pain out of proportion. Stool brown on the gloved finger. : No CVA tenderness Musc: Full ROM, no deformity Skin: Warm, dry Neuro: Alert, oriented, grossly intact, sensation intact Psych: Cooperative, appropriate mood and affect [facility] Medical History Anemia Anxiety Depression HSV (herpes simplex virus) infection Seizure Home Medications ?Medication ?Instructions ?Recorded ?Last Taken ?Type cholecalciferol (vitamin D3) 1,250 1,250 mcg PO QWEEK 10/07/23 Unknown History mcg (50,000 unit) capsule norethindrone acetate 5 mg tablet 5 mg PO DAILY Unknown History amoxicillin 875 mg-potassium 1 tab PO Q12.TCU 12/31/24 Unknown History clavulanate 125 mg tablet chlorhexidine gluconate 0.12 % 12/31/24 Unknown Histo ry mouthwash Allergy/AdvReac Type Severity Reaction Status Date / Time amoxicillin (From Augmentin) Allergy Intermediate Abd Verified 12/31/24 16:49 cramps/diarrhea clavulanic acid (From Allergy Intermediate Abd Verified 12/31/24 16:49 Augmentin) cramps/diarrhea Social History Smoking Status: Former smoker EXAM Physical Exam Const Vital Signs: 12/31/24 16:42 12/31/24 18:49 Temperature 97.4 F L Temperature Source Temporal Pulse Rate 88 61 Respiratory Rate 16 18 Blood Pressure 106/66 96/65 Blood Pressure Mean 79 75 Pulse Ox 100 100 Oxygen Delivery Method Room Air Room Air MDM MDM MDM Narrative Medical decision making narrative: 29-year-old female with past medical history of depression, anxiety, anemia presents for evaluation of GI bleed. Patient states she was recently placed on Augmentin for a wisdom tooth infection. She states that the infection improved and her tooth however she developed multiple episodes of diarrhea. States that she took Augmentin for about 5 days and stopped taking it secondary to the diarrhea. She states today she noticed bright red blood on the toilet paper and in the bowl. Called her PCP who told her to come to the emergency department. On presentation, patient no acute distress. Vitals are stable. Physical exam shows a non-thrombosed hemorrhoid with mild bleeding, suspect this is the cause of her bright red blood per rectum that she saw today. I suspect the hemorrhoidal bleeding is from her multiple episodes of diarrhea. NS bolus ordered. Basic labs ordered. Differential diagnosis includes but is not limited to antibiotic side effect, dehydration, electrolyte abnormality, UTI, , gastroenteritis. Low suspicion for any intra-abdominal pathology. I do not think any imaging is needed at this time. Patient in agreement. Basic labs ordered. CBC without leukocytosis. Patient has mild anemia with heme at 11.2. On chart review she has a history of this in the past. Platelet count unremarkable. CMP unremarkable. Lipase unremarkable. UA negative for UTI or blood. I suspect patient's diarrhea is secondary to her recent Augmentin use. Recommended probiotics. I believe her bright red blood per rectum that she saw the day was secondary to her hemorrhoidal bleeding. Patient is stable to discharge home. Follow-up with primary care physician. Return precautions explained. She agreed and understand the plan. Impression 1. Diarrhea secondary to Augmentin side effect 2. Hemorrhoidal bleeding secondary to #1 3. Chronic anemia Lab Data Labs: Laboratory Results - last 24 hr 12/31/24 17:15 WBC 5.8 RBC 3.61 L Hgb 11.2 L Hct 32.1 L MCV 88.9 MCH 31.0 MCHC 34.9 RDW Std Deviation 36.6 RDW Coeff of [place]ilo 11.3 L Plt Count 326 MPV 8.8 Immature Gran % (Auto) 0.200 Neut % (Auto) 59.5 Lymph % (Auto) 29.0 [place] % (Auto) 7.7 Eos % (Auto) 2.6 Baso % (Auto) 1.0 Absolute Neuts (auto) 3.5 Absolute Lymphs (auto) 1.69 Nucleated RBC % 0 Sodium 140 Potassium 3.6 Chloride 107 Carbon Dioxide 22.7 Anion Gap 11 BUN 13 Creatinine 0.63 L Estim Creat Clear Calc 99.43 Est GFR (MDRD) Non-Af 123 BUN/Creatinine Ratio 20.8 H Glucose 95 Calcium 9.0 Total Bilirubin 0.27 AST 20 ALT 12 Alkaline Phosphatase 76 Total Protein 6.9 Albumin 4.5 Globulin 2.5 Albumin/Globulin Ratio 1.8 Lipase 15 Urine Color Yellow Urine Clarity Sl. Cloudy Urine pH 6.0 Ur Specific [place] 1.025 Urine Protein 30 H Urine Glucose (UA) Normal Urine Ketones Negative Urine Occult Blood Negative Urine Nitrite Negative Urine Bilirubin Negative Urine Urobilinogen Normal Ur Leukocyte Esterase Negative Urine RBC 0-5 SEEN Urine WBC 0-5 SEEN Ur Squamous Epith Cells 0-5 SEEN Urine Bacteria 0 SEEN Urine Mucus 0 SEEN Urine Test Negative Discharge Plan Triage Chief Complaint: GI Bleed ED Provider: Esteban Mills Dx/Rx/DC Orders Prescriptions: No Action amoxicillin-pot clavulanate 875-125 mg tablet 1 tab PO Q12.TCU chlorhexidine gluconate 0.12 % mouthwash Patient Comments: PLEASE SEE ATTACHED FOR DETAILED DIRECTIONS norethindrone acetate 5 mg tablet 5 mg PO DAILY Patient Comments: reports was to take 3x/day, then 2x day then 1x/day cholecalciferol (vitamin D3) 1,250 mcg (50,000 unit) capsule 1,250 mcg PO QWEEK Primary Care Provider: Mitchell Dolan Referrals: Mitchell Dolan MD [Primary Care Provider] - Print Language: Somali
[2024-12-31 17:40] LABS: Mucous, Urine 0 SEEN /hpf (<or=2+)
[2024-12-31 17:51] LABS: Hematocrit 32.1 % (37-47); Hemoglobin 11.2 g/dL (12.0-15.0); Immature Granulocytes Count 0.010 X10^3/uL (0.0-0.0); Mean Corp Hgb Conc 34.9 g/dL (32-36); Mean Corpuscular Volume 88.9 fL (81-99); Mean Platelet Vol. 8.8 fl (6.2-12.0); NRBC Flagged by Analyzer 0 % (0-5); Platelet Count 326 K/mm3 (150-450); RBC Distribution Width CV 11.3 % (11.6-14.6); RBC Distribution Width SD 36.6 fl (35.1-43.9); Red Blood Count 3.61 M/mm3 (4.2-5.4); White Blood Count 5.8 K/mm3 (4.4-11.0)
[2024-12-31 18:26] LABS: AST(SGOT) 20 U/L (<=31); Alanine Aminotransfer ALT/SGPT 12 U/L (<=34); Albumin, Serum 4.5 g/dL (3.5-5.0); Alkaline Phosphatase 76 U/L (35-104); Anion Gap 11 (5-15); BUN 13 mg/dL (4-19); BUN/Creat Ratio 20.8 RATIO (10-20); Calcium,Total 9.0 mg/dL (7.6-11.0); Carbon Dioxide 22.7 mmol/L (21.0-32.0); Chloride 107 mmol/L (98-108); Estimated Creatinine Clearance 99.43 ml/min (50-250); Globulin 2.5 g/dL (2.2-4.2); Glucose 95 mg/dL (70-99); Lipase 15 U/L (13-75); Potassium 3.6 mmol/L (3.3-5.1)
[2024-12-31 18:35] LABS: Internal QC Validated? YES +Cl - CLEAR BKGD; Pregnancy, Urine Negative Negative
[2024-12-31 18:36] LABS: Record Kit Lot#,Urine Preg 962302
[2024-12-31 18:41] LABS: Color, Urine Yellow (Yellow); Glucose, Dipstick Normal (Normal); Ketone-Dipstick Negative (Negative); Leukocyte Esterase-Dipstick Negative /ul (Negative); Nitrite-Dipstick Negative (Negative); Occult Blood-Urine Negative /ul (Negative); Protein-Dipstick 30 mg/dl (Negative); Specific Gravity, Urine 1.025 (1.002-1.030); Urine Bilirubin Dipstick Negative (Negative)
[2024-12-31 18:49] VITALS: BP 96/65; PULSE 61; RESP 18; O2SAT 100
[2024-12-31 18:53] LABS: Red Blood Cells-Urine 0-5 SEEN /hpf (0-5); Squamous Epithelial Cells - UA 0-5 SEEN /hpf (5-10)
[2024-12-31 19:13] VITALS: BP 96/60; PULSE 72; RESP 18; TEMP 36.6; O2SAT 100
== END 2024-12-31 19:17 | disposition home or self-care (01) ==
PROVIDERS: Emergency Provider Surgery; PCP Family Medicine; Visit Provider Surgery
DX: R19.7 Diarrhea, unspecified (principal); D64.9 Anemia, unspecified; Z87.891 Personal history of nicotine dependence; K64.9 Unspecified hemorrhoids; F41.9 Anxiety disorder, unspecified; F32.A Depression, unspecified
CPT/HCPCS: 80053; 81001; 81025; 83690; 85025; 96360; 96361; 99283; A4216